=== PATIENT | female | born 1990 | race Caucasian/White ===

== ENCOUNTER 2017-12-17 05:42 | Outpatient (CLI) | payer OTHER, BC ==
[~2017-12-17] VITALS: Ht 177.8 cm; Wt 102.7 kg
[2017-12-17 05:57] VITALS: BP 121/59; PULSE 92; TEMP 98.2
[2017-12-17] MEDS ORDERED: PRENATAL MVI (06:00)
[2017-12-17 07:00] VITALS: BP 109/58; PULSE 89; TEMP 98.8
[2017-12-17 07:36] LABS: COLLECTION METHOD CLEAN CATCH
[2017-12-17 07:41] LABS: MUCOUS Present /lpf; PH 7 (5-8); SQUAMOUS EPITHELIAL 0-2 /hpf; URINE APPEARANCE Clear; URINE BACTERIA None Seen /hpf; URINE BILIRUBIN Negative (NEGATIVE); URINE BLOOD Negative (NEGATIVE); URINE COLOR Amber; URINE GLUCOSE Negative (NEGATIVE); URINE KETONE 2+ (NEGATIVE); URINE LEUKOCYTE ESTERASE Negative (NEGATIVE); URINE NITRATE Negative (NEGATIVE); URINE PROTEIN(semi-quant) 2+ (NEGATIVE)
[2017-12-17 07:43] LABS: ALBUMIN 3.5 gm/dL (3.5-5.0); BILIRUBIN,TOTAL 0.5 mg/dL (0.0-1.0); CALCIUM 8.9 mg/dL (8.4-10.2); CREATININE, serum 0.62 mg/dL (0.52-1.25); POTASSIUM 3.8 mmol/L (3.4-5.0); TOTAL PROTEIN 6.3 gm/dL (6.4-8.2)
[2017-12-17 07:54] LABS: MEAN CELL VOLUME 87 fl (80.0-100.0); MEAN CORPUSCULAR HGB CONC 32 g/dl (33.0-37.0); PLATELET COUNT 316 K/mm3 (130-400); RED BLOOD COUNT 3.91 M/mm3 (4.10-5.30); REDCELL DISTRIBUTION WIDTH-CV 13.9 % (11.5-14.5)
[2017-12-17 07:56] LABS: HEMATOCRIT 33.9 % (37.0-47.0); HEMOGLOBIN 10.9 g/dl (12.5-16.0); MEAN CORPUSCULAR HEMOGLOBIN 28 pg (27.0-31.0)
[2017-12-17 08:00] VITALS: BP 115/61; PULSE 88
[2017-12-17 08:25] LABS: BAND 24 % (0-10); HYPOCHROMIA 1+; LYMPHOCYTE 17 % (20.0-51.0); NEUTROPHILS 54 % (42.0-75.2); PLATELET ESTIMATE NORMAL (NORMAL)
[2017-12-17 09:00] VITALS: BP 113/58; PULSE 93
[2017-12-17 10:00] VITALS: BP 116/58; PULSE 96
== END 2017-12-17 10:15 | disposition home or self-care (01) ==
LOC: LDRO 05:42
PROVIDERS: Obstetrics & Gynecology
DX: O62.9 Abnormality of forces of labor, unspecified (principal); Z3A.36 36 weeks gestation of pregnancy
CPT/HCPCS: J7120

== ENCOUNTER 2017-12-20 13:00 | Inpatient (IN) | payer OTHER, BC ==
[~2017-12-20] VITALS: Ht 180.3 cm; Wt 102.7 kg
[2017-12-20] VITALS (28 sets, daily range): BP systolic 91–150; BP diastolic 52–86; PULSE 67–115; TEMP 97.9–98.6
[~2017-12-20 13:00] MED LIST: PRENATAL MVI
[2017-12-20 13:58] LABS: BASO % 0.3 % (0.0-2.0); EOS # 0.1 (0.0-0.7); EOS % 0.4 % (0-4.0); GRAN # 9.2 (1.4-6.5); GRAN % 67.4 % (42.2-75.2); LYMPH # 3.5 (1.2-3.4); LYMPH % 25.6 % (20.0-51.0); MEAN CELL VOLUME 85 fl (80.0-100.0); MEAN CORPUSCULAR HGB CONC 32 g/dl (33.0-37.0); MEAN PLATELET VOLUME 9.6 fl (7.4-10.4); MONO # 0.8 (0.1-0.6); MONO % 5.9 % (1.7-9.3); PLATELET COUNT 404 K/mm3 (130-400); RED BLOOD COUNT 4.19 M/mm3 (4.10-5.30); REDCELL DISTRIBUTION WIDTH-CV 13.8 % (11.5-14.5)
[2017-12-20 14:17] LABS: HEMATOCRIT 35.8 % (37.0-47.0); HEMOGLOBIN 11.4 g/dl (12.5-16.0); MEAN CORPUSCULAR HEMOGLOBIN 27 pg (27.0-31.0)
[2017-12-21 02:45] VITALS: BP 116/78; PULSE 75
[2017-12-21 07:38] VITALS: BP 117/63; PULSE 95; TEMP 98.3
[2017-12-21 16:30] VITALS: BP 110/57; PULSE 75; TEMP 98
[2017-12-21 21:00] VITALS: BP 132/73; PULSE 78; TEMP 98
[2017-12-22 02:00] VITALS: BP 118/62; PULSE 76; TEMP 98.1
[2017-12-22] MEDS ORDERED: MOTRIN 800800 MG/TAB PO (09:37)
[2017-12-22 10:10] VITALS: BP 124/70; PULSE 78; TEMP 98.4
[2017-12-22 16:06] VITALS: BP 128/79; PULSE 65; TEMP 98.2
== END 2017-12-22 19:00 | disposition home or self-care (01) | DRG 775 ==
LOC: LDRO 13:00 → LDR 13:10 → OB 13:10 → LDR 19:31 → OB 21:38
PROVIDERS: Student in an Organized Health Care Education/Training Program
PROC: 10E0XZZ Delivery of Products of Conception, External Approach (ICD-10-PCS; principal; 2017-12-20)
PROC: 0KQM0ZZ Repair Perineum Muscle, Open Approach (ICD-10-PCS; 2017-12-20)
PROC: 0UQMXZZ Repair Vulva, External Approach (ICD-10-PCS; 2017-12-20)
DX: O99.824 Streptococcus B carrier state complicating childbirth (principal); O70.1 Second degree perineal laceration during delivery; O69.81X0 Labor and delivery complicated by cord around neck, without compression, not applicable or unspecified; O75.89 Other specified complications of labor and delivery; O71.82 Other specified trauma to perineum and vulva; Z3A.37 37 weeks gestation of pregnancy; Z37.0 Single live birth
CPT/HCPCS: J1200; J2210; J2540; J2590; J2795; J7120